=== PATIENT | male | born 1955 | race Caucasian/White ===

== ENCOUNTER → 2016-07-06 | Day surgery (SDC) | payer OTHER ==
[~2016-07-06] MED LIST: KETOROLAC TROMETHAMINE 30 MG/ML (IVP) VIAL IV PUSH ONE; LACTATED RINGER'S 1000 ML INJ 1,000 ML ONE; LIDOCAINE 1%/EPINEPHrine 1:100,000 SOLN 30 ML VIAL ONE; MIDAZOLAM HCL 2 MG/2 ML VIAL ONE; NEOMYCIN/POLYMYXIN/BACITRACIN OINT 15 GM TUBE ONE; ONDANSETRON HCL 4 MG/2 ML VIAL IV PUSH ONE; PROPOFOL 200 MG/20 ML AMP IV ONE; ceFAZolin 2 GM PREMIX 50 ML ONE
--- NOTE | 2016-07-06 21:50 | TN ---
cc: SMITH BALLARD M.D. DATE OF SURGERY 07/06/2016 PREOPERATIVE DIAGNOSIS 5 cm basal cell carcinoma of the left shoulder. POSTOPERATIVE DIAGNOSIS 5 cm basal cell carcinoma of the left shoulder. PROCEDURE Wide local excision of left shoulder basal cell carcinoma 5.5 x 15.0 cm excision with two-layer closure. SURGEON Dr. Smith Ballard ANESTHESIA General. INDICATIONS A pleasant 60-year-old gentleman who had a nonhealing wound on the left shoulder. It was biopsied as basal cell carcinoma. Recommendation was made for wide local excision. INTRAOPERATIVE FINDINGS Specimen removed with a short stitch placed at 12 o'clock, long stitch at 3 o'clock. No gross positive margins. ESTIMATED BLOOD LOSS Less than 25 ml. DESCRIPTION OF PROCEDURE IN DETAIL The patient was identified as Orion Garcia taken to the operating room and placed in the supine position. Sequential compression devices placed on bilateral lower extremities. Following induction of adequate general anesthesia with a laryngeal mask, a bump was placed beneath the left shoulder and the area of concern was prepped and draped in usual sterile fashion with Betadine. A time-out procedure was performed. Following completion of time-out procedure everyone's satisfaction within the room the proposed elliptical incision was made with a marking pen, measured and 1% lidocaine with epinephrine was injected in and around the area of proposed incision. Incision was carried out with scalpel and hemostasis controlled with electrocautery. The specimen was removed and deep to the tumor the fascia overlying the lateral deltoid muscle was removed in continuity with the specimen in attempts to provide a negative margin. No gross tumor was left behind. All margins clinically appeared negative. The wound was irrigated with saline. It was circumferentially released from between the subcutaneous fatty tissue and the fascia of the musculature to allow for primary closure. This was performed in two layers using 3-0 Vicryl and 4-0 nylon. At the center the wound intermittent vertical mattress nylon sutures were placed, on either end running simple suture was placed. The wound was dressed with antibiotic ointment, 4x4s and an island dressing. The patient tolerated the procedure without apparent complication. Sponge, needle and instrument counts were correct at the case. MD BENITA Rodriguez/SENAIT /3:42 PM /9:40 PM GRAY
== END | disposition home or self-care (01) ==
LOC: ESDC 12:28
PROVIDERS: ATTEND Surgery Trauma Surgery
DX: C44.619 Basal cell carcinoma of skin of left upper limb, including shoulder (principal)
CPT/HCPCS: 00400; 11606; 12035; J0690; J1885; J2250; J2405; J3010; J7120; 88305